=== PATIENT | female | born 1965 ===

== ENCOUNTER 2016-12-17 13:45 | Day surgery (SDC) | payer OTHER ==
[2016-12-11 13:37] VITALS: BMI 26.6
[2016-12-17 14:44] LABS: ADD MANUAL DIFF? NO
[2016-12-17 14:50] LABS: BASO # 0.03 K/mm3 (0.0-2.0); BASO % 0.4 % (0.0-3.0); EOS # 0.2 (0.0-0.7); EOS % 2.8 % (1.5-5.0); GRAN # 4.44 (1.4-6.5); GRAN % 61.9 % (50.0-68.0); HEMATOCRIT 32.4 % (36.0-48.0); LYMPH # 2.1 (1.2-3.4); LYMPH % 29.2 % (22.0-35.0); MEAN CORPUSCULAR HEMOGLOBIN 23.7 pg (25.0-35.0); MEAN CORPUSCULAR HGB CONC 32.1 g/dl (31.0-37.0); MEAN PLATELET VOLUME 8.7 fl (7.0-11.0); MONO # 0.4 (0.1-0.6); MONO % 5.7 % (1.0-6.0); PLATELET COUNT 394 10^3/uL (120.0-450.0); RED CELL DISTRIBUTION WIDTH 14.9 % (11.5-14.5); WHITE BLOOD COUNT 7.2 10^3/ul (4.5-11.0)
[2016-12-17 14:58] LABS: INR 0.97 (0.93-1.08); PARTIAL THROMBOPLASTIN TIME 25.5 Seconds (23.7-30.8)
[2016-12-17 14:59] LABS: BLOOD UREA NITROGEN 9 mg/dL (7-21); CALCIUM 8.7 mg/dL (8.4-10.5); CARBON DIOXIDE 26 mmol/L (21-33); CHLORIDE 102 mmol/L (95-110); GFR AFRICAN-AMERICAN > 60; GLUCOSE,RANDOM 89 mg/dL (70-110); POTASSIUM 3.8 mmol/L (3.6-5.0); SODIUM 138 mmol/L (132-148)
--- NOTE | 2016-12-17 15:35 | CP.SDSHP ---
Same Day Surgery H & P - History Proposed Procedure: Ultrasound guided thyroid nodule biopsy Pre-Op Diagnosis: Thyroid nodule - Previous Medical/Surgical History Cardiac: Other (has history of heart murmur as a child.) Endocrine/Metabolic: Thyroid Disease (History of thyroid nodules,had several biopsies.Recently,increase in size of a thyroid nodule was noted) Pain: 0. No Pain Comments: LMP 12/14/16 Previous Surgical History: Several throid biopsies. Breast biopsy - Allergies Allergies: Allergies No Known Allergies Allergy (Verified 12/11/16 13:36) - Physical Exam General Appearance: Well nourished female Vital Signs: Vital Signs 12/17/16 14:26 Temperature 98.7 F Pulse Rate 90 Respiratory 20 Rate Blood Pressure 158/99 H O2 Sat by Pulse 99 Oximetry Mental Status: Alert & Oriented x3 Neuro: WNL Heart: WNL Lungs: WNL - {Optional Preform as Required} Abdomen: WNL Other Pertinent Findings: Thyroid nodule ,about 3cm diameter felt in the L lobe. - Impression Impression: Thyroid nodule. - Date & Time Date: 12/17/16 Time: 15:34 Short Stay Discharge - Short Stay Discharge Admitting Diagnosis/Reason for Visit: THYROID NODULE E04.9 Disposition: HOME/ ROUTINE
[2016-12-17] MEDS ORDERED: Midazolam 2 MG/2 ML VIAL ONE (16:05)
[2016-12-17] MEDS ORDERED: Oxycodone/Acetaminophen 5/325 mg Tab PO PRN (16:49)
[2016-12-17] MEDS ORDERED: Sodium Chloride 0.45% 1,000 ML IV SCH (17:00)
--- NOTE | 2016-12-17 17:26 | US ---
PROCEDURE: Ultrasound-guided left thyroid fine needle aspiration biopsy. CLINICAL HISTORY: Dominant 3.6 cm heterogeneous left thyroid nodule with calcification. Evaluate for malignancy. PHYSICIAN(S): Murtaza Perez M.D. TECHNIQUE: The relative risks and indications for the procedure were explained to the patient and consent obtained. The patient was placed supine on the stretcher with the neck extended and preliminary sonography of the thyroid performed. This reveal dominant 3.6 cm heterogeneous left thyroid nodule with calcification.. The remainder of the thyroid parenchyma is fairly homogeneous in echotexture. The neck was prepped and draped in the usual sterile fashion. Conscious sedation and monitoring were provided throughout the procedure by a nurse. 1% Xylocaine was used to anesthetize the skin and soft tissues at the access site. Three passes with a 22-gauge needle were performed under ultrasound guidance for fine needle aspiration of the re- 0.6 cm heterogeneous nodule in the left thyroid. The slides were reviewed by pathology and deemed adequate. The patient tolerated the procedure well. IMPRESSION: 1. Ultrasound guided fine needle aspiration of a 0.6 cm heterogeneousnodule in the left thyroid.
[2016-12-17 17:48] VITALS: RESP 18; TEMP 98.4; O2SAT 97
[2016-12-17 18:13] VITALS: BP 124/93; PULSE 98
== END 2016-12-17 18:40 | disposition home or self-care (01) ==
LOC: SDS 13:45
PROVIDERS: ATTEND Radiology Vascular & Interventional Radiology
DX: E04.1 Nontoxic single thyroid nodule (principal)
CPT/HCPCS: 10022; 36415; 80048; 84703; 85025; 85610; 85730; 88173; 88305; J2250; J2405; J3010; J7030; J7040